=== PATIENT | female | born 1980 | race Asian ===

== ENCOUNTER 2018-01-16 17:24 | Emergency (ER) | payer OTHER ==
[2018-01-16 17:40] VITALS: BP 123/83
[2018-01-16] MEDS ORDERED: diphenhydrAMINE 25 MG CAPSULE PO STA (18:45)
[2018-01-16] MEDS ORDERED: predniSONE 20 MG TABLET PO STA (18:45)
--- NOTE | 2018-01-16 18:52 | ED Physician Documentation ---
History of Present Illness - Stated complaint Stated Complaint: RASH - Chief complaint Chief Complaint: General - History obtained from History obtained from: Patient, Family - History of Present Illness Timing: Other (2 months ago) Pain level max: 0 Pain level now: 0 Improved by: nothing Worsened by: nothing - Additonal information Additional information: Patient is a 27-year-old female who presents to the emergency department with a rash for the past several months. Saw her PCP and was placed on triamcinolone. She was also placed on antifungal cream. States the rash is worsening and becoming more itchy. Denies any recent travel, new products. No new foods. Review of Systems Constitutional: denies: Fever Nose: denies: Rhinorrhea / runny nose, Congestion Throat: denies: Sore throat Respiratory: denies: Cough GI: denies: Abdominal Pain, Vomiting : denies: Now [facility] PD PAST MEDICAL HISTORY - Past Medical History Past Medical History: No - Past Surgical History Past Surgical History: No - Present Medications Home Medications: Ambulatory Orders Medication Instructions Recorded Confirmed predniSONE [Prednisone] 40 mg PO DAILY #10 tablet 01/16/18 - Allergies Allergies/Adverse Reactions: Allergies Allergy/AdvReac Type Severity Reaction Status Date / Time No Known Drug Allergies Allergy Verified 01/16/18 17:39 - Living Situation Living Situation: reports: With spouse/s.o. Living Arrangement: reports: At home PD ED PE NORMAL - Vitals Vital signs reviewed: Yes - General General: Alert and oriented X 3, No acute distress - HEENT HEENT: Moist mucous membranes, Other (normal intraoral exam) - Neck Neck: Supple, no meningeal sign - Cardiac Cardiac: RRR - Respiratory Respiratory: No respiratory distress, Clear bilaterally - Abdomen Abdomen: Soft, Non tender - Derm Derm: Warm and dry, Other (small papules diffusely. no pustules or vesicles. No evidence of secondary infection. excoriation levine present. ) - Neuro Neuro: Alert and oriented X 3 Results - Vitals Vitals: Vital Signs - 24 hr 01/16/18 17:37 Temperature 36.6 C Heart Rate 93 Respiratory 16 Rate Blood Pressure 123/83 H O2 Saturation 99 Oxygen O2 Source Room air PD MEDICAL DECISION MAKING - ED course Complexity details: considered differential, d/w patient, d/w family ED course: Patient is a 27-year-old female who presents to the emergency department with a papular exanthem of unclear etiology. Excoriation levine present. Will trial on steroids and follow-up with her doctor. No evidence of secondary infection. Does not appear fungal in etiology. She is well-appearing, nontoxic. Will refer her back to PCP for possible Derm referral as well. Patient counseled regarding signs and symptoms for which I believe and urgent re-evaluation would be necessary. Patient with good understanding of and agreement to plan and is comfortable going home at this time This document was made in part using voice recognition software. While efforts are made to proofread this document, sound alike and grammatical errors may occur. Departure - Departure Disposition: 01 Home, Self Care Clinical Impression: Dermatitis Condition: Good Instructions: ED Dermatitis Non Specific Rash Follow-Up: [facility] [Provider Group] - Within 1 week Prescriptions: predniSONE [Prednisone] 40 mg PO DAILY #10 tablet Comments: Return if you worsen. Follow up with dermatology and your doctor for further care. Discharge Date/Time: 01/16/18 19:04
== END 2018-01-16 19:04 | disposition home or self-care (01) ==
LOC: EDBD 17:24 → ED 17:24
DX: L30.9 Dermatitis, unspecified (principal)
CPT/HCPCS: 99283; A9270; J7512

== ENCOUNTER 2018-07-27 14:03 | Outpatient (CLI) | payer OTHER | END 2018-07-27 14:04 | disposition home or self-care (01) | LOC: DI 14:03 | PROVIDERS: ATTEND Family Medicine | DX: Z53.9 Procedure and treatment not carried out, unspecified reason (principal) ==

== ENCOUNTER 2018-07-27 14:52 | Emergency (ER) | payer OTHER ==
[2018-07-27 15:01] VITALS: BP 116/82
--- NOTE | 2018-07-27 15:31 | XRAY Report ---
Reason: TB screen Procedure Date: 07/27/2018 Accession Number: [id number] / [id number] Procedure: XR - Chest 2 View X-Ray CPT Code: 04804 FULL RESULT: EXAM: CHEST RADIOGRAPHY EXAM DATE: 07/27/2018 03:19 PM. CLINICAL HISTORY: TB screen. COMPARISON: None available. TECHNIQUE: 2 views. FINDINGS: Lungs/Pleura: No focal opacities evident. No pleural effusion. No pneumothorax. Normal volumes. Mediastinum: Heart and mediastinal contours are unremarkable. Other: None. IMPRESSION: Negative for evidence of active tuberculosis. RADIA
--- NOTE | 2018-07-27 15:40 | ED Physician Documentation ---
History of Present Illness - Stated complaint Stated Complaint: CHEST PX - Chief complaint Chief Complaint: Resp - History obtained from History obtained from: Patient - History of Present Illness Timing: Today - Additonal information Additional information: 38-year-old female who is working at [email or web address] has had a PPD placed and her second PPD turned positive and she is been asked by her employer to come to get a chest x-ray to rule out active TB. She is a [place] of [facility] has been living in [place] for 9 years and here in [facility] for 1 year. She does not have any personal history of TB and she has been given all the required vaccinations prior to coming to [place]. Review of Systems Constitutional: denies: Fever, Chills, Myalgias, Fatigue, Weight Loss, Sweats Eyes: denies: Decreased vision Ears: denies: Ear pain Nose: denies: Rhinorrhea / runny nose, Congestion Throat: denies: Sore throat Cardiac: denies: Chest pain / pressure, Palpitations Respiratory: denies: Dyspnea, Cough GI: denies: Abdominal Pain, Nausea, Vomiting, Constipation, Diarrhea : denies: Dysuria, Frequency Skin: reports: Rash (To right forearm with PPD placed.) Musculoskeletal: denies: Neck pain, Back pain, Extremity pain Neurologic: denies: Generalized weakness, Focal weakness PD PAST MEDICAL HISTORY - Past Medical History Past Medical History: No - Past Surgical History Past Surgical History: No - Present Medications Home Medications: Ambulatory Orders Medication Instructions Recorded Confirmed No Known Home Medications [No 07/27/18 07/27/18 Known Home Medications] - Allergies Allergies/Adverse Reactions: Allergies Allergy/AdvReac Type Severity Reaction Status Date / Time No Known Drug Allergies Allergy Verified 07/27/18 15:00 - Social History Does the pt smoke?: No Smoking Status: Never smoker Does the pt have substance abuse?: No - Immunizations Immunizations are current?: Yes PD ED PE NORMAL - Vitals Vital signs reviewed: Yes (hypertensive mild ) - General General: Alert and oriented X 3, No acute distress, Well developed/nourished - HEENT HEENT: Atraumatic, PERRL, EOMI, Ears normal, Moist mucous membranes, Pharynx benign, Dentition benign - Neck Neck: Supple, no meningeal sign, No bony TTP - Cardiac Cardiac: RRR, No murmur - Respiratory Respiratory: No respiratory distress, Clear bilaterally - Abdomen Abdomen: Soft, Non tender - Back Back: No CVA TTP, No spinal TTP - Derm Derm: Normal color, Warm and dry, No rash - Extremities Extremities: No deformity, No edema - Neuro Neuro: Alert and oriented X 3, medical sociologist 2-12 intact, No motor deficit, No sensory deficit, Normal speech Eye Opening: Spontaneous Motor: Obeys Commands Verbal: Oriented GCS Score: 15 - Psych Psych: Normal mood, Normal affect Results - Vitals Vitals: Vital Signs - 24 hr 07/27/18 14:57 Temperature 36.8 C Heart Rate 71 Respiratory 16 Rate Blood Pressure 116/82 H O2 Saturation 100 Oxygen O2 Source Room air - Rads (name of study) 2 veiw chest Radiology: Prelim report reviewed (Impression: Negative for evidence of active tuberculosis.), EMP read indepedently, See rad report PD MEDICAL DECISION MAKING - ED course Complexity details: reviewed old records, reviewed results, re-evaluated patient , considered differential, d/w patient ED course: 38-year-old previously well female with a positive PPD has no evidence of active TB on her chest x-ray. - Sepsis Event Vital Signs: Vital Signs - 24 hr 07/27/18 14:57 Temperature 36.8 C Heart Rate 71 Respiratory 16 Rate Blood Pressure 116/82 H O2 Saturation 100 Oxygen O2 Source Room air Departure - Departure Disposition: 01 Home, Self Care Clinical Impression: Well adult exam Condition: Stable Instructions: TB Screening Skin Follow-Up: [facility] [Provider Group] Comments: Today there is no evidence of active TB on your chest x-ray.
== END 2018-07-27 15:47 | disposition home or self-care (01) ==
LOC: ED 14:52
DX: R76.11 Nonspecific reaction to tuberculin skin test without active tuberculosis (principal)
CPT/HCPCS: 71046; 99282

== ENCOUNTER 2020-07-26 08:42 | Emergency (ER) | payer OTHER ==
[2020-07-26 09:27] LABS: BILIRUBIN,URINE NEGATIVE (NEGATIVE); GLUCOSE, URINE (UA) NEGATIVE (NEGATIVE); KETONES,URINE (UA) NEGATIVE (NEGATIVE); LEUKOCYTE ESTERASE, URINE NEGATIVE (NEGATIVE); NITRITE,URINE NEGATIVE (NEGATIVE); OCCULT BLOOD,URINE TRACE-INTA (NEGATIVE); PROTEIN,URINE NEGATIVE (NEGATIVE); UROBILINOGEN,URINE 0.2 (NORMAL) E.U./dL (NORMAL)
[2020-07-26 09:29] LABS: CLARITY,URINE CLEAR (CLEAR)
--- NOTE | 2020-07-26 09:45 | ED Physician Documentation ---
History of Present Illness - Stated complaint Stated Complaint: FEMALE - Chief complaint Chief Complaint: Abd Pain - History obtained from History obtained from: Patient - History of Present Illness Timing: How many days ago (3) Pain level max: 0 Pain level now: 0 - Additonal information Additional information: 40-year-old female, 1 para 0 presents to the emergency department stating that she is approximately 7 weeks . Started with spotting 2 days ago, no increased bleeding today. Has not had an ultrasound. Mild abdominal cramping. Nothing makes it better or worse. Review of Systems Constitutional: denies: Fever, Chills Respiratory: denies: Cough GI: denies: Nausea, Vomiting, Diarrhea : denies: Dysuria, Frequency, Hesitancy Skin: denies: Rash Musculoskeletal: denies: Neck pain, Back pain Neurologic: denies: Headache PD PAST MEDICAL HISTORY - Past Medical History Past Medical History: No - Past Surgical History Past Surgical History: No - Present Medications Home Medications: Ambulatory Orders Medication Instructions Recorded Confirmed No Known Home Medications 07/27/18 07/27/18 - Allergies Allergies/Adverse Reactions: Allergies Allergy/AdvReac Type Severity Reaction Status Date / Time No Known Drug Allergies Allergy Verified 07/27/18 15:00 - Social History Does the pt smoke?: No Smoking Status: Never smoker Does the pt have substance abuse?: No - Immunizations Immunizations are current?: Yes PD ED PE NORMAL - Vitals Vital signs reviewed: Yes - General General: Alert and oriented X 3, No acute distress - HEENT HEENT: Moist mucous membranes - Neck Neck: Supple, no meningeal sign - Cardiac Cardiac: RRR - Respiratory Respiratory: No respiratory distress, Clear bilaterally - Abdomen Abdomen: Soft, Non tender, Non distended - Derm Derm: Warm and dry - Neuro Neuro: Alert and oriented X 3 Results - Vitals Vitals: Vital Signs - 24 hr 07/26/20 07/26/20 07/26/20 08:50 11:05 11:30 Temperature 36.8 C 37.1 C Heart Rate 94 70 60 Respiratory 18 16 16 Rate Blood Pressure 110/81 H 105/82 H 95/60 O2 Saturation 98 99 100 Oxygen O2 Source Room air - Labs Labs: Laboratory Tests 07/26/20 07/26/20 07/26/20 09:09 10:12 10:12 WBC 7.0 RBC 4.46 Hgb 13.2 Hct 39.9 MCV 89.5 MCH 29.6 MCHC 33.1 RDW 12.0 Plt Count 179 MPV 11.7 H Neut # (Auto) 5.2 Lymph # (Auto) 1.1 L [place] # (Auto) 0.5 Eos # (Auto) 0.2 Baso # (Auto) 0.0 Absolute Nucleated RBC 0.00 Nucleated RBC % 0.0 Sodium Potassium Chloride Carbon Dioxide Anion Gap BUN Creatinine Estimated GFR (MDRD) Glucose Calcium Total Bilirubin AST ALT Alkaline Phosphatase Total Protein Albumin Globulin Albumin/Globulin Ratio Lipase HCG, Quant Urine Color YELLOW Urine Clarity CLEAR Urine pH 7.0 Ur Specific [place] 1.020 Urine Protein NEGATIVE Urine Glucose (UA) NEGATIVE Urine Ketones NEGATIVE Urine Occult Blood TRACE-INTA Urine Nitrite NEGATIVE Urine Bilirubin NEGATIVE Urine Urobilinogen 0.2 (NORMAL) Ur Leukocyte Esterase NEGATIVE Ur Microscopic Review NOT INDICATED Urine Culture Comments NOT INDICATED Blood Type O POSITIVE 07/26/20 07/26/20 10:12 10:12 WBC RBC Hgb Hct MCV MCH MCHC RDW Plt Count MPV Neut # (Auto) Lymph # (Auto) [place] # (Auto) Eos # (Auto) Baso # (Auto) Absolute Nucleated RBC Nucleated RBC % Sodium 136 Potassium 3.6 Chloride 104 Carbon Dioxide 25 Anion Gap 7.0 BUN 9 Creatinine 0.6 Estimated GFR (MDRD) 112 Glucose 103 H Calcium 9.1 Total Bilirubin 1.0 AST 22 ALT 28 Alkaline Phosphatase 47 Total Protein 7.1 Albumin 4.1 Globulin 3.0 Albumin/Globulin Ratio 1.4 Lipase 31 HCG, Quant 8794.00 Urine Color Urine Clarity Urine pH Ur Specific [place] Urine Protein Urine Glucose (UA) Urine Ketones Urine Occult Blood Urine Nitrite Urine Bilirubin Urine Urobilinogen Ur Leukocyte Esterase Ur Microscopic Review Urine Culture Comments Blood Type - Rads (name of study) OB ultrasound Radiology: Prelim report reviewed, EMP read contemporaneously, See rad report PD MEDICAL DECISION MAKING - ED course Complexity details: reviewed results, re-evaluated patient, considered differential, d/w patient ED course: 40-year-old female presents to the emergency department with what appears to be a likely in progress miscarriage. We will have her follow-up with OB for repeat hCG and ultrasound. Patient counseled regarding signs and symptoms for which I believe and urgent re-evaluation would be necessary. Patient with good understanding of and agreement to plan and is comfortable going home at this time This document was made in part using voice recognition software. While efforts are made to proofread this document, sound alike and grammatical errors may occur. 1. Low-lying, irregular intrauterine gestational sac as above without visualized pole. Given location and appearance, cannot exclude pending spontaneous . However, recommend correlation to beta hCG levels and short interval imaging follow-up for visualization of progression or potentially stabilization and development of pole. Departure - Departure Disposition: 01 Home, Self Care Clinical Impression: Miscarriage, threatened, early Condition: Good Instructions: ED Miscarriage Poss Follow-Up: [facility] [Provider Group] Comments: It appears that you are likely having a miscarriage today. Your hCG level is 8700. [place] done in approximately 3 days. They may want to repeat your ultrasound as well. 1. Low-lying, irregular intrauterine gestational sac as above without visualized pole. Given location and appearance, cannot exclude pending spontaneous . However, recommend correlation to beta hCG levels and short interval imaging follow-up for visualization of progression or potentially stabilization and development of pole. Discharge Date/Time: 07/26/20 11:30
--- NOTE | 2020-07-26 10:00 | Ultrasound Report ---
PROCEDURE: OB First Trimester INDICATIONS: 7 weeks preg, VB OUTSIDE/PRIOR DATING DATA: Last menstrual period (LMP): 06/07/2020. LMP-based estimated date of delivery (CUCA): 03/14/2021. First dating scan (date and location): 07/26/2020. Estimated date of delivery (CUCA) from first dating scan: Not applicable. TECHNIQUE: Real-time scanning was performed of the fetus and maternal pelvic organs, with image documentation. COMPARISON: None FINDINGS: Embryo: Intrauterine gestational sac is identified measuring 1.6 cm corresponding to 6 weeks 3 days. No pole or crown-rump length is identified. It is noted that the gestational sac is irregular and appear to move closer to the lower uterine segment at the end of the examination. Measurement variability in dating: +/- 4 weeks by LMP, +/- 7 days by mean sac diameter (use before 6 weeks gestation if crown-rump length not able to be measured), +/- 5 days by crown-rump length (6-12 weeks gestation). Maternal organs: Ovaries demonstrate a left corpus luteal cyst.. Limited images through the kidneys demonstrate no hydronephrosis. IMPRESSION: 1. Low-lying, irregular intrauterine gestational sac as above without visualized pole. Given lo cation and appearance, cannot exclude pending spontaneous . However, recommend correlation to beta hCG levels and short interval imaging follow-up for visualization of progression or potentially stabilization and development of pole. Reviewed by: Sonal Rain MD on 07/26/2020 9:58 AM PDT Approved by: Sonal Rain MD on 07/26/2020 9:58 AM PDT Station ID: [id number]
--- NOTE | 2020-07-26 10:00 | Ultrasound Report ---
PROCEDURE: OB Transvaginal INDICATIONS: 7 weeks preg, VB OUTSIDE/PRIOR DATING DATA: Last menstrual period (LMP): 06/07/2020. LMP-based estimated date of delivery (CUCA): 03/14/2021. First dating scan (date and location): 07/26/2020. Estimated date of delivery (CUCA) from first dating scan: Not applicable. TECHNIQUE: Real-time scanning was performed of the fetus and maternal pelvic organs, with image documentation. COMPARISON: None FINDINGS: Embryo: Intrauterine gestational sac is identified measuring 1.6 cm corresponding to 6 weeks 3 days. No pole or crown-rump length is identified. It is noted that the gestational sac is irregular and appear to move closer to the lower uterine segment at the end of the examination. Measurement variability in dating: +/- 4 weeks by LMP, +/- 7 days by mean sac diameter (use before 6 weeks gestation if crown-rump length not able to be measured), +/- 5 days by crown-rump length (6-12 weeks gestation). Maternal organs: Ovaries demonstrate a left corpus luteal cyst.. Limited images through the kidneys demonstrate no hydronephrosis. IMPRESSION: 1. Low-lying, irregular intrauterine gestational sac as above without visualized pole. Given lo cation and appearance, cannot exclude pending spontaneous . However, recommend correlation to beta hCG levels and short interval imaging follow-up for visualization of progression or potentially stabilization and development of pole. Reviewed by: Sonal Rain MD on 07/26/2020 9:59 AM PDT Approved by: Sonal Rain MD on 07/26/2020 9:59 AM PDT Station ID: [id number]
[2020-07-26 10:26] LABS: BASOPHILS % (AUTO) 0.6 %; EOSINOPHILS # (AUTO) 0.2 10^3/uL (0.0-0.7); EOSINOPHILS % (AUTO) 2.3 %; HGB - HEMOGLOBIN 13.2 g/dL (12.0-16.0); LYMPHOCYTES # (AUTO) 1.1 10^3/uL (1.5-3.5); LYMPHOCYTES % (AUTO) 16.2 %; MEAN CORPUSCULAR HEMOGLOBIN 29.6 pg (27.0-31.0); MEAN CORPUSCULAR HGB CONC 33.1 g/dL (32.0-36.0); MEAN CORPUSCULAR VOLUME 89.5 fL (81.0-99.0); MEAN PLATELET VOLUME 11.7 fL (7.9-10.8); MONOCYTES # (AUTO) 0.5 10^3/uL (0.0-1.0); MONOCYTES % (AUTO) 6.8 %; NEUTROPHILS # (AUTO) 5.2 10^3/uL (1.5-6.6); NEUTROPHILS % (AUTO) 73.8 %; PLT - PLATELET COUNT 179 10^3/uL (130-450); RED BLOOD COUNT 4.46 10^6/uL (4.20-5.40)
[2020-07-26 10:40] LABS: ALBUMIN 4.1 g/dL (3.2-5.5); ALBUMIN/GLOBULIN RATIO 1.4 (1.0-2.2); CALCIUM 9.1 mg/dL (8.5-10.3); CREATININE 0.6 mg/dL (0.4-1.0); TOTAL PROTEIN 7.1 g/dL (6.7-8.2)
[2020-07-26 11:32] VITALS: BP 95/60
== END 2020-07-26 11:30 | disposition home or self-care (01) ==
LOC: ED 08:42
DX: O20.0 Threatened abortion (principal); O09.511 Supervision of elderly primigravida, first trimester; O34.81 Maternal care for other abnormalities of pelvic organs, first trimester; N83.12 Corpus luteum cyst of left ovary; Z3A.01 Less than 8 weeks gestation of pregnancy
CPT/HCPCS: 36415; 76801; 76817; 80053; 81001; 81003; 83690; 84702; 85025; 86900; 86901; 87086; 99284